=== PATIENT | female | born 1970 | race Caucasian/White ===

== ENCOUNTER 2020-11-01 10:11 | Emergency (ER) | payer BC, OTHER ==
[2020-11-01 11:44] LABS: HEMOGLOBIN 13.7 gm/dl (12.3-15.3); RED BLOOD COUNT 4.53 M/UL (4.00-5.10); WHITE BLOOD COUNT 7.4 K/UL (4.5-11.0)
[2020-11-01 12:22] LABS: BUN/CREATININE RATIO 16 (0-10)
[2020-11-01] MEDS ORDERED: PROTONIX40 MG PO (14:33)
[2020-11-01] MEDS ORDERED: MYLANTA MAXIMU355 ML PO (14:33)
[2020-11-01] MEDS ORDERED: ONDANSETRON ODT4 MG SL (14:33)
[2020-11-01] MEDS ORDERED: CARAFATE1 GM PO (14:38)
== END 2020-11-01 14:50 | disposition home or self-care (01) ==
LOC: ER1 10:11
PROVIDERS: Physician Assistant
DX: R10.11 Right upper quadrant pain (principal); R10.12 Left upper quadrant pain; K21.9 Gastro-esophageal reflux disease without esophagitis; E03.9 Hypothyroidism, unspecified; Z79.899 Other long term (current) drug therapy; Z88.0 Allergy status to penicillin; Z88.2 Allergy status to sulfonamides; Z88.1 Allergy status to other antibiotic agents
CPT/HCPCS: 80053; 81001; 83690; 84703; 85025; 96365; 99284; Q9967